=== PATIENT | male | born 1990 | race Caucasian/White ===

== ENCOUNTER 2024-05-27 17:34 | Emergency (ER) | payer BC ==
[2024-05-27 17:40] VITALS: BMI 29.9
[2024-05-27 18:00] LABS: BASO % 0.7 % (0-2.0); EOS % 1.5 % (0-4.5); HEMATOCRIT 47.9 % (35.4-49); HEMOGLOBIN 15.7 GM/dL (11.7-16.9); LYMPH % 52.3 % (8-40); MCHC 32.9 g/dl (32.0-35.9); MEAN CELL VOLUME 91.3 fl (80-96); MEAN PLT VOLUME 7.9 fl (7.5-11.1); MONO % 7.7 % (3.8-10.2); NEUT % 37.8 % (42.8-82.8); PLATELET COUNT 384 10^3/uL (134-434); RBC 5.25 M/mm3 (4.00-5.60); RDW 13.6 % (11.9-15.9)
[2024-05-27] MEDS ORDERED: ACETAMINOPHEN INJECTION 100 ML IVPB ONE (18:10)
[2024-05-27] MEDS ORDERED: METOCLOPRAMIDE HCL INJECTION 10 MG/2 ML VIAL ONE (18:10)
[2024-05-27 18:13] LABS: INR 0.95 (0.83-1.09); PROTHROMBIN TIME (PATIENT) 10.7 SEC (9.7-13.0)
[2024-05-27] MEDS: SODIUM CHLORIDE 1,000 ML IV STA (18:14)
[2024-05-27] MEDS: ACETAMINOPHEN 1000 MG/100 ML BAG IVPB ONE (18:14)
[2024-05-27] MEDS: METOCLOPRAMIDE HCL INJECTION 10 MG/2 ML VIAL IVPB ONE (18:15)
[2024-05-27 18:16] LABS: ACTIVATED PTT 25.3 SECONDS (25.2-36.5)
[2024-05-27 18:40] LABS: POTASSIUM 3.8 mmol/L (3.5-5.1)
[2024-05-27 18:42] LABS: CALCIUM 9.4 mg/dL (8.5-10.1)
[2024-05-27 18:43] LABS: ALBUMIN 4.5 g/dl (3.4-5.0); BLOOD UREA NITROGEN 12.8 mg/dL (7-18)
[2024-05-27 18:46] LABS: CREATININE 1.1 mg/dL (0.55-1.3)
[2024-05-27 18:47] LABS: BILIRUBIN,TOTAL 0.4 mg/dL (0.2-1); TOT PROT 7.5 g/dl (6.4-8.2)
[2024-05-27 20:12] VITALS: BP 133/72; PULSE 71; RESP 19; TEMP 97.9
== END 2024-05-27 20:11 | disposition home or self-care (01) ==
LOC: JER 17:34
DX: R51.9 Headache, unspecified (principal); R20.2 Paresthesia of skin; R11.0 Nausea; H53.8 Other visual disturbances; R26.2 Difficulty in walking, not elsewhere classified; Z20.822 Contact with and (suspected) exposure to COVID-19
CPT/HCPCS: 0241U-QW; 36415; 70450-TC; 70496-TC; 70498-TC; 80053; 80061; 82962; 83036; 84484; 85025; 85610; 85730; 86850; 86900; 86901; 93005; 93010; 99285-25; J0131; Q9967